=== PATIENT | male | born 2000 | race Caucasian/White ===

== ENCOUNTER 2024-11-08 11:52 | Emergency (ER) | payer OTHER ==
[~2024-11-08] VITALS: Ht 177.8 cm; Wt 59.0 kg
[2024-11-08 11:59] VITALS: BP 110/75; TEMP 98
[2024-11-08] MEDS ORDERED: RABIES VACCINE (PCEC)/PF 1 EA KIT IM ONE (12:19)
[2024-11-08] MEDS: RABIES VACCINE (PCEC)/PF 1 EA KIT IM ONE (12:29)
[2024-11-08 12:30] VITALS: O2SAT 98
== END 2024-11-08 12:46 | disposition home or self-care (01) ==
LOC: ER 12:04
DX: Z20.3 Contact with and (suspected) exposure to rabies (principal); Z23 Encounter for immunization